=== PATIENT | female | born 1945 | race Caucasian/White ===

== ENCOUNTER → 2017-02-13 | Outpatient (CLI) | payer BC ==
[~2017-02-13] MED LIST: ASPI81TA2 PO; AZEL137S6 NS; FEXO180T56 PO; MULT1CAP47 PO; NAPR220C11 PO; OMEP-29 PO; SIMV40TA82 PO; TRAM50TA53 PO; VITA400C70 PO; [UNRECOGNIZED DRUG - CODE] NS
== END ==
LOC: WC.BC 08:12
DX: Z12.31 Encounter for screening mammogram for malignant neoplasm of breast (principal); Z80.3 Family history of malignant neoplasm of breast
CPT/HCPCS: 77063; G0202